=== PATIENT | male | born 1940 | race Asian ===

== ENCOUNTER 2019-01-23 09:31 | Observation (INO) | payer OTHER ==
[~2019-01-23] VITALS: Ht 172.7 cm; Wt 92.3 kg
[~2019-01-23 09:31] MED LIST: ATEN25TA21 PO; LISITAB PO; LOVASTATIN40 MG PO; MOBIC15 MG PO; OMEP20CA PO; TERAZOSIN2 MG PO
[2019-01-23 09:51] VITALS: BP 153/75; TEMP 98.2
[2019-01-23 11:24] LABS: PLATELET COUNT 224 K/uL (142-355)
[2019-01-23 11:32] LABS: POTASSIUM 4.5 mmol/L (3.6-5.2)
[2019-01-23 11:40] LABS: PARTIAL THROMBOPLASTIN TIME 23.6 SECONDS (24.5-33.6)
[2019-01-23 14:50] VITALS: BP 187/83; TEMP 97.5; Ht 172.7 cm; Wt 92.3 kg
[2019-01-23 16:00] VITALS: BP 178/86; TEMP 97.6
[2019-01-23 20:00] VITALS: BP 150/76; TEMP 97.9
[2019-01-24] VITALS: BP 118/82; TEMP 97.8
[2019-01-24 04:00] VITALS: BP 167/81; TEMP 97.8
[2019-01-24 08:00] VITALS: BP 157/82; TEMP 97.9
== END 2019-01-24 11:05 | disposition home or self-care (01) ==
LOC: ED 09:31 → MED/SURG 13:30
PROVIDERS: ADMIT Family Medicine
DX: S22.42XA Multiple fractures of ribs, left side, initial encounter for closed fracture (principal); W17.89XA Other fall from one level to another, initial encounter; Y92.89 Other specified places as the place of occurrence of the external cause; I48.0 Paroxysmal atrial fibrillation; I10 Essential (primary) hypertension; K21.9 Gastro-esophageal reflux disease without esophagitis; M81.8 Other osteoporosis without current pathological fracture; R07.89 Other chest pain; E78.00 Pure hypercholesterolemia, unspecified
CPT/HCPCS: 36415; 80053; 85027; 85379; 85610; 85730; 96365; 96366; 96372; 99220; 99284; G0378; J1885; Q9963